=== PATIENT | female | born 1990 | race African-American/Black ===

== ENCOUNTER 2016-11-22 05:32 | Emergency (ER) | payer MEDICAID ==
[~2016-11-22] VITALS: Ht 157.5 cm; Wt 59.0 kg
[2016-11-22 07:49] VITALS: BP 118/57
[2016-11-22] MEDS ORDERED: BACITRACIN ZINC OINT UDPKT TOP ONE (08:30)
[2016-11-22] MEDS ORDERED: LIDOCAINE HCL 1%/EPI 1:200,000 30 ML VIAL MC ONE (08:30)
== END 2016-11-22 10:18 | disposition home or self-care (01) ==
LOC: ER 09:02
DX: S01.511A Laceration without foreign body of lip, initial encounter (principal); S09.90XA Unspecified injury of head, initial encounter; Y04.0XXA Assault by unarmed brawl or fight, initial encounter; Y93.89 Activity, other specified; Y92.89 Other specified places as the place of occurrence of the external cause
CPT/HCPCS: 12011; 70450; 70486; 81025; 99284; A4217; Z7610